=== PATIENT | male | born 1990 | race Two or more races ===

== ENCOUNTER 2017-12-15 03:31 | Emergency (ER) | payer BC ==
[2017-12-15 03:38] VITALS: RESP 18
[2017-12-15] MEDS ORDERED: KETOROLAC 30 MG/ML 1 ML VIAL IVP ONE (04:00)
[2017-12-15] MEDS ORDERED: ORPHENADRINE 30 MG/ML 2 ML VIAL IVP STA (04:00)
--- NOTE | 2017-12-15 04:52 | XR ---
EXAM: XR Lumbar Spine, 2 or 3 Views CLINICAL HISTORY: Its. reason XR Reason: Pain TECHNIQUE: Frontal and lateral views of the lumbar spine. COMPARISON: No relevant prior studies available. FINDINGS: Vertebrae: Unremarkable. No acute fracture. Normal alignment. Disc spaces: No acute findings. No significant narrowing. Soft tissues: Unremarkable. IMPRESSION: Normal lumbar spine x-rays.
--- NOTE | 2017-12-15 05:11 | ED ---
General Adult HPI - General Chief complaint: Back Pain/Injury Stated complaint: Back Pain Time Seen by Provider: 12/15/17 03:33 Source: patient Mode of arrival: ambulatory Limitations: physical limitation - History of Present Illness Initial comments: Previously healthy 27-year-old male who presents the emergency department for evaluation of low back pain. Patient reports that in July he had a slip and fall, ice and developed some low back pain. Back pain resolved after a couple of weeks. Patient reports that he has been seeing a chiropractor a couple days a week due to the pain which has improved. 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 - Related Data Previous Rx's Medication Instructions Recorded Cyclobenzaprine [Flexeril] 10 mg PO TID #30 tab 12/15/17 Ibuprofen [Motrin] 800 mg PO TID #60 tab 12/15/17 Lidocaine 5% Patch [Lidoderm] 1 patch TOPICAL DAILY 30 Days #30 12/15/17 patch Allergies Allergy/AdvReac Type Severity Reaction Status Date / Time Penicillins Allergy Unknown Verified 12/15/17 03:38 Childhood Review of Systems ROS Statement: Those systems with pertinent positive or pertinent negative responses have been documented in the HPI. ROS Other: All systems not noted in ROS Statement are negative. Past Medical History Past Medical History: No Reported History History of Any Multi-Drug Resistant Organisms: None Reported Past Surgical History: No Surgical Hx Reported Past Psychological History: No Psychological Hx Reported Smoking Status: Never smoker Past Alcohol Use History: Occasional Past Drug Use History: None Reported General Exam Limitations: physical limitation General appearance: alert, in no apparent distress Head exam: Present: atraumatic, normocephalic, normal inspection Eye exam: Present: normal appearance, PERRL ENT exam: Present: normal exam Neck exam: Present: normal inspection, full ROM Respiratory exam: Present: normal lung sounds bilaterally. Absent: respiratory distress Cardiovascular Exam: Present: normal rhythm, bradycardia GI/Abdominal exam: Present: soft. Absent: distended Rectal exam: Present: deferred Extremities exam: Present: normal inspection, full ROM, normal capillary refill , other (Normal sensation bilaterally). Absent: pedal edema Back exam: Present: normal inspection, muscle spasm, paraspinal tenderness. Absent: vertebral tenderness, rash noted Neurological exam: Present: alert, oriented X3, CN II-XII intact. Absent: motor sensory deficit Psychiatric exam: Present: normal affect, normal mood Skin exam: Present: warm, dry Course Vital Signs 12/15/17 12/15/17 03:33 05:33 Temperature 98.1 F 98.2 F Pulse Rate 53 L 59 L Respiratory 18 18 Rate Blood Pressure 120/77 121/67 O2 Sat by Pulse 99 100 Oximetry Medical Decision Making - Medical Decision Making Patient seen and evaluated, patient with intermittent back pain since a fall in July, has not had any imaging. Reports lifting at work and lifting his 2-year- old daughter at home prior to going to bed last night. Woke during the night with severe muscle spasm and reports that he was intending out of 10. Lisinopril pains and 911 was called. Patient received Franklyn in route reports that his pain is now down to a 4 out of 10. Patient with no red flags for back pain. No IV drug abuse. No focal neurologic deficits, no saddle anesthesia, no bowel or bladder incontinence or urinary retention. Patient has normal strength and movement of his bilateral lower extremities X-ray was ordered to evaluate for potential compression fracture as the patient has a history of fall with pain developing after the fall IV muscle relaxers and ordered were ordered Patient was reevaluated after medications, he was found to be sleeping comfortably. Reports complete resolution of his back pain. X-rays were unremarkable results were discussed with the patient and family at bedside. Patient was given a work note for later today so that he can rest. Patient will be discharged home with Flexeril, Lidoderm and Motrin. I do suspect the patient has sciatica and advised to follow-up with his primary care physician for further evaluation and treatment. All questions pertaining the care answered best my ability patient discharged home in stable condition. Disposition Clinical Impression: Mechanical back pain, Sciatica Disposition: HOME SELF-CARE Condition: Good Instructions: Sciatica (ED), Acute Low Back Pain (ED), Lumbar Radiculopathy (ED ), Piriformis Syndrome (ED), Lower Back Exercises (ED) Prescriptions: Cyclobenzaprine [Flexeril] 10 mg PO TID #30 tab Ibuprofen [Motrin] 800 mg PO TID #60 tab Lidocaine 5% Patch [Lidoderm] 1 patch TOPICAL DAILY 30 Days #30 patch Is patient prescribed a controlled substance at d/c from ED?: No Referrals: None,Stated [Primary Care Provider] - 1-2 days
[2017-12-15 05:35] VITALS: BP 121/67; PULSE 59; TEMP 98.2
== END 2017-12-15 05:36 | disposition home or self-care (01) ==
LOC: EC 03:31
DX: M54.40 Lumbago with sciatica, unspecified side (principal); Z88.0 Allergy status to penicillin
CPT/HCPCS: 72110; 99283; 96374; 96375; J2360; J1885